=== PATIENT | female | born 1935 | race Caucasian/White ===

== ENCOUNTER 2017-05-09 16:25 | Emergency (ER) | payer MEDICARE, BC ==
[~2017-05-09 16:25] MED LIST: ACETAMINOPHEN PO; ALLOPURINOL300 MG PO; AMBIEN PO; AMBIEN10 MG; AMBIEN10 MG PO; ASPIRIN PO; ASPIRIN81 M1 PO; ASPIRIN81 M2 PO; ATENOLOL PO; ATENOLOL50 MG PO; CELEBREX PO; CELEBREX50 MG; CELEBREX50 MG PO; CELECOXIB200 MG PO; CHONDROITIN SU250 MG PO; CIPRO250 MG PO; COUMADIN5 MG PO; DILTIAZEM 24HR240 M1 PO; GLUCOSAMINE & C1 CAP PO; GLUCOSAMINE HC500 MG PO; GLUCOSAMINE PO; HCTZ PO; HYDROCHLOROTHIA25 MG PO; KCL PO; KEFLEX500 MG PO; LEVOTHROID175 MCG PO; LEVOTHYROXINE150 MCG PO; LEVOXYL0.137 MG; LISINOPRIL5 MG; LISINOPRIL5 MG PO; LOPRESSOR PO; LOVENOX SUBQ; LOVENOX80 MG/0.8 INJ; LOW DOSE ASPIRI81 M1; METOPROLOL TART75 MG PO; NEXIUM PO; PANTOPRAZOLE SO40 MG PO; PHENERGAN12.5 MG DOB; POTASSIUM CHLO10 MEQ PO; PRAVACHOL PO; PRAVACHOL20 MG PO; PRAVASTATIN SOD20 MG; PRAVASTATIN SOD20 MG PO; PRILOSEC20 MG PO; PROTONIX20 MG; SYNTHROID PO; SYNTHROID0.15 MG PO; TOPROL XL; TOPROL XL50 MG PO; UNISOM25 MG PO; VIBRAMYCIN100 M1; VITAMIN D3400 UNIT PO; VITAMIN D400 UNI1 PO; ZOFRAN PO; ZYLOPRIM PO
== END 2017-05-09 17:10 | disposition home or self-care (01) ==
LOC: SED 16:25
DX: S50.11XA Contusion of right forearm, initial encounter (principal); Z23 Encounter for immunization; Z88.0 Allergy status to penicillin; Z79.899 Other long term (current) drug therapy; X58.XXXA Exposure to other specified factors, initial encounter; Y92.009 Unspecified place in unspecified non-institutional (private) residence as the place of occurrence of the external cause
CPT/HCPCS: 90471; 90715; 99283

== ENCOUNTER 2017-07-16 10:21 | Emergency (ER) | payer MEDICARE ==
[~2017-07-16] VITALS: Ht 162.6 cm; Wt 71.4 kg
--- NOTE | ~2017-07-16 | CR206 ---
[facility] A Service of [facility] RADIOLOGY TEXT RESULTS PATIENT: MAGDA JUAN LOCATION: [facility] : 35 UNIT #: [id number] AGE: [address]: Jose Alfredo Fernandez MD SEX: F ORDER DR: [id number] [facility] [address] [place], [place] [address] [id number] E MR#: [id number] Acc #: [id number] NAME: MAGDA JUAN : 1935 SEX: F STUDY DATE/TIME: 07/16/2017 10:47 UNIT: [facility] ROOM: STUDY DESCRIPTION: CR Pelvis 1 or 2 Views Attending Physician: Jose Alfredo Fernandez M.D. Ordering Physician: Jose Alfredo Fernandez M.D. Primary Care Physician: Darwin Banda M.D. MEDICAL IMAGING REPORT This report is preliminary unless electronic signature is present EXAM Pelvis one-view 07/16/2017 1047 hours HISTORY Patient was found down next to her car today. Patient is confused and states her legs won't work. Possible fall with hip pain. COMPARISON CT abdomen and pelvis, 09/16/2013. FINDINGS Single AP view of the pelvis demonstrates overall normal bone density. The left hip is rotated. No definite fracture is seen although a left femoral neck fracture could be obscured. Pubic rami are intact. No sacral fracture seen. IMPRESSION Single view of the pelvis demonstrates the left hip to be rotated. No definite fracture is seen although the positioning could obscure a left femoral neck fracture. If the patient has pain at the left hip, I would suggest follow up dedicated left hip films to exclude a left hip fracture. Dictated by... Annalee Peters M.D. THIS IS AN ELECTRONICALLY VERIFIED REPORT Annalee Peters M.D. at 07/17/2017 9:10 AM Srinivasa TD: 07/16/2017 17:11 JOB #: [id number] [facility] A Service of [facility] RADIOLOGY TEXT RESULTS PATIENT: MAGDA JUAN LOCATION: [facility] #: [id number] : 35 UNIT #: [id number] AGE: [address]: Jose Alfredo Fernandez MD SEX: F ORDER DR: MEDICAL IMAGING REPORT Page 1 of 1 COPY
--- NOTE | ~2017-07-16 | EKG ---
PATIENT: MAGDA JUAN UNIT #: [id number] Ventricular Rate: 64 BPM Atrial Rate: 64 BPM P-R Interval: 156 ms QRS Duration: 68 ms Q-T Interval: 418 ms QTC Calculation(Bezet): 431 ms P [place]: 73 degrees Calculated R [place]: -8 degrees Calculated T [place]: 54 degrees Diagnosis Line: Normal sinus rhythm Diagnosis Line: Normal ECG Diagnosis Line: When compared with ECG of 12-DEC-2016 10:01, Diagnosis Line: No significant change was found Diagnosis Line: Confirmed by VISHNU HARPER MD ([id number]) on 07/16/2017 Diagnosis Line: 10:12:33 PM INTERPRETING MD: LEROY FUENTES
--- NOTE | ~2017-07-16 | CT71 ---
[facility] A Service of [facility] RADIOLOGY TEXT RESULTS PATIENT: MAGDA JUAN LOCATION: [facility] : 35 UNIT #: [id number] AGE: [address]: Jose Alfredo Fernandez MD SEX: F ORDER DR: [id number] [facility] [address] [place], [place] [address] [id number] E MR#: [id number] Acc #: [id number] NAME: MAGDA JUAN : 1935 SEX: F STUDY DATE/TIME: 07/16/2017 11:43 UNIT: [facility] ROOM: STUDY DESCRIPTION: CT Head Wo Contrast Attending Physician: Jose Alfredo Fernandez M.D. Ordering Physician: Jose Alfredo Fernandez M.D. Primary Care Physician: Darwin Banda M.D. MEDICAL IMAGING REPORT This report is preliminary unless electronic signature is present EXAM Noncontrast CT head. DATE 07/16/2017 HISTORY Patient was told she fell today but does not remember falling. Found by her car. Stated, "Legs not working." Difficulty moving legs. COMPARISON Noncontrast CT head 12/12/2016. FINDINGS This CT exam was performed with one or more of the following radiation dose reduction techniques: Automatic exposure control, adjustment of mA and/or kV according to patient size, and iterative reconstruction. Chronic coarse calcification of the left tentorium cerebelli, unchanged. There is mild generalized parenchymal atrophy with compensatory prominence of ventricles and extraaxial spaces. Scattered hypodensities within the deep white matter are nonspecific but are favored to represent changes of chronic microvascular disease. Chronic-appearing lacunar infarcts are demonstrated within the left basal ganglia. No convincing CT evidence of acute or evolving infarct. No mass lesion, mass effect or midline shift is seen. Calvarium is within normal limits. Mild right sphenoid sinus mucosal thickening. Mastoid air cells are clear. IMPRESSION 1. Mild generalized atrophy and scattered areas of chronic microvascular disease change with chronic-appearing lacunar infarcts in the left basal ganglia. 2. No acute intracranial findings. [facility] A Service of [facility] RADIOLOGY TEXT RESULTS PATIENT: MAGDA JUAN LOCATION: [facility] #: [id number] : 35 UNIT #: [id number] AGE: [address]: Jose Alfredo Fernandez MD SEX: F ORDER DR: Dictated by... Joann Carmichael M.D. THIS IS AN ELECTRONICALLY VERIFIED REPORT Joann Carmichael M.D. at 07/19/2017 8:52 AM EMILIA/neel TD: 07/16/2017 20:49 JOB #: [id number] MEDICAL IMAGING REPORT Page 1 of 1 COPY
--- NOTE | ~2017-07-16 | CR71 ---
[facility] A Service of [facility] RADIOLOGY TEXT RESULTS PATIENT: MAGDA JUAN LOCATION: [facility] : 35 UNIT #: [id number] AGE: [address]: Jose Alfredo Fernandez MD SEX: F ORDER DR: [id number] [facility] [address] [place], [place] [address] [id number] E MR#: [id number] Acc #: [id number] NAME: MAGDA JUAN : 1935 SEX: F STUDY DATE/TIME: 07/16/2017 10:46 UNIT: [facility] ROOM: STUDY DESCRIPTION: CR Chest Single View Attending Physician: Jose Alfredo Fernandez M.D. Ordering Physician: Jose Alfredo Fernandez M.D. Primary Care Physician: Darwin Banda M.D. MEDICAL IMAGING REPORT This report is preliminary unless electronic signature is present EXAM Chest one-view 07/16/2017 1046 hours HISTORY 82-year-old woman who was found down by her car today. Patient is confused and has her legs won't work. Possible fall with hip pain. COMPARISON 12/12/2016 FINDINGS Portable upright chest demonstrates median sternotomy change with normal heart size and stable tortuous atherosclerotic aorta. The lungs are clear with no definite effusion or fracture. Old healed left posterior rib fractures again noted. IMPRESSION Median sternotomy change with no acute cardiopulmonary findings. There are old healed left posterior mid rib fractures unchanged from 12/12/2016. No acute fracture seen. Dictated by... Annalee Peters M.D. THIS IS AN ELECTRONICALLY VERIFIED REPORT Annalee Peters M.D. at 07/17/2017 9:10 AM ELIANA/valarie TD: 07/16/2017 17:07 JOB #: [id number] [facility] A Service of [facility] RADIOLOGY TEXT RESULTS PATIENT: MAGDA JUAN LOCATION: [facility] : 35 UNIT #: [id number] AGE: [address]: Jose Alfredo Fernandez MD SEX: F ORDER DR: MEDICAL IMAGING REPORT Page 1 of 1 COPY
[2017-07-16 11:06] LABS: PARTIAL THROMBOPLASTIN TIME 25.3 SECONDS (23.5-31.3)
[2017-07-16 11:09] LABS: POC - CKMB <1.0 ng/mL (0.0-7.9); POC - TROPONIN <0.05 ng/mL (<=0.05)
[2017-07-16 11:30] LABS: URINE SOURCE CLEAN CATCH
[2017-07-16 11:34] LABS: URINE APPEARANCE CLEAR; URINE BILIRUBIN NEG (NEG); URINE BLOOD NEG (NEG); URINE COLOR YELLOW; URINE GLUCOSE NEG (NEG); URINE KETONE NEG (NEG); URINE LEUKOCYTE ESTERASE NEG (NEG); URINE NITRATE NEG (NEG); URINE PH 5.5 (5-8); URINE PROTEIN NEG (NEG); URINE UROBILINOGEN 0.2 MG/DL (NEG)
[2017-07-16 11:43] LABS: CULTURE INDICATED? NO
[2017-07-16 12:13] LABS: HEMATOCRIT 28.4 % (35.0-45.0); HEMOGLOBIN 9.3 gm/dL (12.0-16.0); MEAN CELL VOLUME 77.3 FL (83-96); MEAN CORPUSCULAR HEMOGLOBIN 25.3 PG (28-34); MEAN CORPUSCULAR HGB CONC 32.7 g/dL (30-36); MEAN PLATELET VOLUME 8.7 FL (6.5-11.5); RED BLOOD COUNT 3.67 X10e (3.90-5.30); RED CELL DISTRIBUTION WIDTH 15.5 % (11.0-15.5); WHITE BLOOD COUNT 7.2 X10e3 (4.0-10.5)
[2017-07-16 12:24] LABS: CALCIUM SERUM 9.8 mg/dL (8.4-10.2); CREATININE SERUM 1.4 mg/dL (0.6-1.4); GLOM FILT RATE Estimated 34.9 mL/min (>60); POTASSIUM 3.7 mmol/L (3.5-5.1)
== END 2017-07-16 13:05 | disposition home or self-care (01) ==
LOC: CED 10:21
PROVIDERS: Emergency Medicine
DX: Z04.3 Encounter for examination and observation following other accident (principal); I10 Essential (primary) hypertension; I25.10 Atherosclerotic heart disease of native coronary artery without angina pectoris; W18.30XA Fall on same level, unspecified, initial encounter; Y92.481 Parking lot as the place of occurrence of the external cause
CPT/HCPCS: 70450; 71010; 72170; 80048; 81003; 82553; 84484; 85027; 85610; 85730; 93005; 99284

== ENCOUNTER 2017-07-18 11:10 | Emergency (ER) | payer MEDICARE ==
--- NOTE | ~2017-07-18 | CT52 ---
[facility] A Service of [facility] RADIOLOGY TEXT RESULTS PATIENT: MAGDA JUAN LOCATION: [facility] : 35 UNIT #: [id number] AGE: [address]: Dario Nava MD SEX: F ORDER DR: [id number] [facility] [address] [place], [place] [address] [id number] E MR#: [id number] Acc #: [id number] NAME: MAGDA JUAN : 1935 SEX: F STUDY DATE/TIME: 07/18/2017 15:18 UNIT: [facility] ROOM: STUDY DESCRIPTION: CT Cervical Spine Wo Cont Attending Physician: Dario Nava Ordering Physician: Ed Doctor [id number] [facility] Primary Care Physician: Darwin Banda M.D. MEDICAL IMAGING REPORT This report is preliminary unless electronic signature is present EXAM CT of the cervical spine without contrast dated 07/18/[address] C-spine without contrast dated 12/12/2016 HISTORY Patient tripped and fell today with facial abrasions. Headache and neck pain today. TECHNIQUE CT of the C-spine was obtained without contrast in the axial plane as per the protocol. This CT exam was performed with one or more of the following radiation dose reduction techniques: automatic exposure control, adjustment of mA and/or kV according to patient size, and iterative reconstruction. FINDINGS No acute fracture is seen. There is a 2 mm retrolisthesis of C5 with respect to C4. Endplate osteophytes and degenerative changes are at multiple levels. No jumped or perched facet joints are seen. C1-2 and C7-T1 junctions are within normal limits. C2-3: Mild disc bulge with mild right and moderate left facet hypertrophic change. Mild inferior left neural foraminal narrowing is seen. There is small central protrusion. Borderline size canal. C3-4: Mild disc bulge with moderate to severe bilateral facet hypertrophic changes. Mild to moderate right and moderate left neural foraminal narrowing are seen without canal stenosis. C4-5: Disc osteophyte complex with bilateral uncinate spurs and severe STS. [facility] A Service of [facility] & [facility] RADIOLOGY TEXT RESULTS PATIENT: MAGDA JUAN [facility] [id number] : 35 UNIT #: [id number] AGE: [address]: Dario Nava MD SEX: F ORDER DR: bilateral facet hypertrophic changes. Severe right and moderate left neural foraminal narrowing is seen with borderline size to mild canal stenosis. C5-6: Disc osteophyte complex with mild bilateral facet hypertrophic changes. Severe left and mild right neural foraminal narrowing are noted with mild to moderate canal stenosis. C6-7: Disc osteophyte complex with bilateral uncinate spurs, severe right and moderate left neural foraminal narrowing. Mild canal stenosis. C7-T1: Mild disc bulge, but otherwise unremarkable. IMPRESSION 1. No acute fracture. 2. There is a 2 mm retrolisthesis of C5 with respect to C4. 3. Degenerative disk disease and facet changes are noted at multiple levels with varying degrees of neural foraminal narrowing and canal stenosis as described above. 4. Relatively worse levels are C6-7, C5-6 and C4-5. Dictated by... Domi Vivas M.D. THIS IS AN ELECTRONICALLY VERIFIED REPORT Domi Vivas M.D. at 07/19/2017 6:25 PM CPR/to TD: 07/18/2017 20:05 JOB #: [id number] MEDICAL IMAGING REPORT Page 1 of 1 COPY
--- NOTE | ~2017-07-18 | CR58 ---
[facility] A Service of [facility] RADIOLOGY TEXT RESULTS PATIENT: MAGDA JUAN LOCATION: [facility] : 35 UNIT #: [id number] AGE: [address]: Dario Nava MD SEX: F ORDER DR: [id number] [facility] [address] [place], [place] [address] [id number] E MR#: [id number] Acc #: [id number] NAME: MAGDA JUAN : 1935 SEX: F STUDY DATE/TIME: 07/18/2017 13:12 UNIT: [facility] ROOM: STUDY DESCRIPTION: CR Cervical Spine 2 or 3 Views Attending Physician: Po Nava M.D. Ordering Physician: Gerry Ramon M.D. Primary Care Physician: Darwin Banda M.D. MEDICAL IMAGING REPORT This report is preliminary unless electronic signature is present EXAM Cervical spine series, 4 views. DATE 07/18/2017 HISTORY Neck pain after a fall today. FINDINGS There is fairly discrete anterolisthesis at C4-5. There is no definite fracture and there are degenerative changes. There is no prevertebral swelling. Spinous process alignment is difficult to address or assess on the AP image. IMPRESSION There is fairly discrete, though mild 4-5 grade 1 anterolisthesis. No definite prevertebral swelling and no definite fracture but consider cervical spine CT nonetheless. Spinous process alignment is difficult to evaluate with confidence on the frontal views, and facet injury cannot be excluded. An unenhanced cervical spine CT should be sufficient for further evaluation. Dictated by... Gurinder Figueroa M.D. THIS IS AN ELECTRONICALLY VERIFIED REPORT Gurinder Figueroa M.D. at 07/19/2017 5:00 PM TEV/tmw TD: 07/18/2017 14:37 [facility] A Service [facility] RADIOLOGY TEXT RESULTS PATIENT: MAGDA JUAN LOCATION: [facility] : 35 UNIT #: [id number] AGE: [address]: Dario Nava MD SEX: F ORDER DR: JOB #: [id number] MEDICAL IMAGING REPORT Page 1 of 1 COPY
--- NOTE | ~2017-07-18 | CT101 ---
[facility] A Service of [facility] RADIOLOGY TEXT RESULTS PATIENT: MAGDA JUAN LOCATION: [facility] : 35 UNIT #: [id number] AGE: [address]: Dario Nava MD SEX: F ORDER DR: [id number] [facility] [address] [place], [place] [address] [id number] E MR#: [id number] Acc #: [id number] NAME: MAGDA JUAN : 1935 SEX: F STUDY DATE/TIME: 07/18/2017 13:19 UNIT: [facility] ROOM: STUDY DESCRIPTION: CT Maxillofacial Area Wo Cont Attending Physician: Dario Nava Ordering Physician: Ed Evert Ramon M.D. Primary Care Physician: Darwin Banda M.D. MEDICAL IMAGING REPORT This report is preliminary unless electronic signature is present EXAM CT maxillofacial area HISTORY Tripped and fell today, facial abrasions. Tripped at [place] at 0930, face forward, landed on the floor. Abrasions to nose and above left eye. Complaints of nose pain and left frontal head pain today. TECHNIQUE CT facial bones performed. Bone and soft tissue windows reviewed. Sagittal, coronal reconstructions performed. This CT exam was performed with one or more of the following radiation dose reduction techniques: automatic exposure control, adjustment of mA and/or kV according to patient size, and iterative reconstruction. FINDINGS Visualized portions of brain show no acute abnormality. There is moderate generalized atrophy suggested. The intraorbital soft tissues are unremarkable. The visualized paranasal sinuses and mastoid air cells show areas of mucosal thickening in the left maxillary sinus. Streak artifact from dental hardware. Soft tissue swelling left supraorbital region without soft tissue defect, subcutaneous air. Soft tissue swelling in the nasal soft tissues again without subcutaneous air. There is soft tissue irregularity along the right nasal soft tissues near the right medial canthus. This could be normal soft tissue configuration for this patient. Correlate with any trauma to this region. There is no subcutaneous air or radiodense foreign body. There are 2 right parotid gland nodules. The more anterior parotid gland nodule measuring about 1.4 cm in diameter, unchanged from prior CT neck November 2016 and the more posterior measuring about 1.6 cm, previously 1.5 cm. Given the stability or very slow rate of change, benign etiology favored. I do not see distinct fatty travis to clearly indicate intra parotid lymph nodes. These could be further evaluated with ultrasound on an elective basis. If it would assist in STS. [facility] A Service of [facility] RADIOLOGY TEXT RESULTS PATIENT: MAGDA JUAN [id number] 35 UNIT #: [id number] AGE: [address]: Dario Nava MD SEX: F ORDER DR: management, they may be amenable to fine needle aspiration sampling. Soft tissue swelling in the nasal region. I believe there is nondisplaced acute fracture of the anterior left nasal bone. No distraction, displacement or significant angulation. Visualized bones of calvarium are intact. The orbital bony structures are unremarkable. Nasal septum shows mild deviation to the left. Ostiomeatal complexes are patent. Zygomas, zygomatic arches, pterygoid plates maxillary sinus wallace are intact. The mandible is intact. Degenerative changes in the visualized cervical spine. No fracture is seen. Streak artifact from scattered dental hardware. IMPRESSION 1. Small nondisplaced fracture anterior aspect of the left nasal bone. No significant distraction or angulation. 2. No other facial bone fractures are seen. 3. Soft tissue swelling in the superficial nasal soft tissues. Question soft tissue/cutaneous irregularity at junction of the right nasal soft tissues and medial right periorbital soft tissues. This could be sequelae of remote trauma or remote intervention. Weight should be to given clinical assessment. There is no subcutaneous radiodense foreign body. 4. Mild soft tissue swelling left supraorbital region without soft tissue defect. 5. Note made of 2 right parotid nodules. They measure approximately 1.4 to 1.6 cm in diameter and show minimal change compared to November 2016. The stability to minimal increase in size over this time frame favors benign etiology. Please correlate clinically. These do not have central areas of fat density to clearly indicate parotid lymph nodes. They could be further evaluated with ultrasound. If it would assist in management, they may be in amendable to fine-needle aspiration sampling. 6. Areas of mucosal thickening left maxillary sinus. There is no evidence of acute sinusitis. 7. Vascular calcifications. Dictated by... Garret Pineda M.D. THIS IS AN ELECTRONICALLY VERIFIED REPORT Garret Pineda M.D. at 07/19/2017 6:35 PM JSK/raine TD: 07/18/2017 15:44 JOB #: [id number] MEDICAL IMAGING REPORT [facility] A Service of [facility] RADIOLOGY TEXT RESULTS PATIENT: MAGDA JUAN [id number] 35 UNIT #: [id number] AGE: [address]: Dario Nava MD SEX: F ORDER DR: Page 1 of 1 COPY
--- NOTE | ~2017-07-18 | CT71 ---
[facility] A Service of [facility] RADIOLOGY TEXT RESULTS PATIENT: MAGDA JUAN LOCATION: [facility] : 35 UNIT #: [id number] AGE: [address]: Dario Nava MD SEX: F ORDER DR: [id number] [facility] [address] [place], [place] [address] [id number] E MR#: [id number] Acc #: [id number] NAME: MAGDA JUAN : 1935 SEX: F STUDY DATE/TIME: 07/18/2017 13:30 UNIT: [facility] ROOM: STUDY DESCRIPTION: CT Head Wo Contrast Attending Physician: Po Nava M.D. Ordering Physician: Gerry Ramon M.D. Primary Care Physician: Darwin Banda M.D. MEDICAL IMAGING REPORT This report is preliminary unless electronic signature is present EXAM CT head without contrast dated 07/18/2017. COMPAR[address] head without contrast dated 07/16/2017. HISTORY Tripped and fell today with facial abrasions. Headaches today. TECHNIQUE CT of the head was obtained without contrast in the axial plane as per the protocol. This CT exam was performed with one or more of the following radiation dose reduction techniques: automatic exposure control, adjustment of mA and/or kV according to patient size, and iterative reconstruction. FINDINGS Patchy hypodensities are noted in the white matter, particularly in the periventricular region. No acute intracranial hemorrhage, space occupying mass, mass effect, midline shift, or hydrocephalus. There is patchy dense calcification noted in the left paramidline aspect of the posterior aspect of the brain, in the region of the tentorium cerebelli. It is probably incidental ossification, benign. Stable. Atherosclerotic arterial vascular calcifications are seen. Paranasal sinuses and mastoid air cells are well aerated. No foreign bodies are noted in the face. Patient is known to have facial abrasions which are difficult to correlate on the current study. Minimal left paramidline forehead soft tissue swelling cannot be excluded. No associated foreign body or fracture. Correlate clinically. [facility] A Service of [facility] RADIOLOGY TEXT RESULTS PATIENT: AMGDA JUAN LOCATION: [facility] : 35 UNIT #: [id number] AGE: [address]: Dario Nava MD SEX: F ORDER DR: IMPRESSION 1. Patchy hypodensities are noted in the brain, predominantly involving the periventricular white matter, likely related to chronic microvascular ischemic change or migraine, based on age and statistics. They were also noted on the prior study from 2 days ago. 2. No interval new acute hemorrhage, hydrocephalus, midline shift, or fracture. 3. Patient is known to have facial abrasions which are difficult to correlate on the current study. Minimal left paramidline forehead soft tissue swelling cannot be excluded. No associated foreign body or fracture. Correlate clinically. Dictated by... Domi Vivas M.D. THIS IS AN ELECTRONICALLY VERIFIED REPORT Domi Vivas M.D. at 07/18/2017 9:32 PM CPR/tmw TD: 07/18/2017 15:51 JOB #: [id number] MEDICAL IMAGING REPORT Page 1 of 1 COPY
== END 2017-07-18 17:18 | disposition home or self-care (01) ==
LOC: CED 11:10
DX: S02.2XXA Fracture of nasal bones, initial encounter for closed fracture (principal); I10 Essential (primary) hypertension; W01.198A Fall on same level from slipping, tripping and stumbling with subsequent striking against other object, initial encounter; Y92.481 Parking lot as the place of occurrence of the external cause; Z88.0 Allergy status to penicillin
CPT/HCPCS: 70450; 70486; 72040; 72125; 99284

== ENCOUNTER 2017-07-23 02:31 | Emergency (ER) | payer MEDICARE ==
[~2017-07-23] VITALS: Ht 162.6 cm; Wt 64.9 kg
--- NOTE | ~2017-07-23 | EKG ---
PATIENT: MAGDA JUAN UNIT #: [id number] Ventricular Rate: 109 BPM Atrial Rate: 109 BPM P-R Interval: 162 ms QRS Duration: 76 ms Q-T Interval: 366 ms QTC Calculation(Bezet): 492 ms P [place]: 46 degrees Calculated R [place]: 5 degrees Calculated T [place]: 32 degrees Diagnosis Line: Sinus tachycardia Diagnosis Line: Nonspecific ST and T wave abnormality Diagnosis Line: Abnormal ECG Diagnosis Line: No previous ECGs available Diagnosis Line: Confirmed by VISHNU HARPER MD ([id number]) on 07/23/2017 Diagnosis Line: 7:55:09 PM INTERPRETING MD: LEROY FUENTES
--- NOTE | ~2017-07-23 | CT4 ---
[facility] A Service of [facility] RADIOLOGY TEXT RESULTS PATIENT: MAGDA JUAN LOCATION: [facility] : 35 UNIT #: [id number] AGE: [address]: Jose Alfredo Fernandez MD SEX: F ORDER DR: [id number] [facility] [address] [place], [place] [address] [id number] E MR#: [id number] Acc #: [id number] NAME: MAGDA JUAN : 1935 SEX: F STUDY DATE/TIME: 07/23/2017 4:50 UNIT: [facility] ROOM: STUDY DESCRIPTION: CT Abd and Pelv Wo Cont Attending Physician: Jose Alfredo Fernandez M.D. Ordering Physician: Jose Alfredo Fernandez M.D. Primary Care Physician: Darwin Banda M.D. MEDICAL IMAGING REPORT This report is preliminary unless electronic signature is present EXAM CT abdomen and pelvis without contrast. HISTORY Unable to move legs. Abdominal aortic aneurysm. Symptom onset today. TECHNIQUE This CT exam was performed with one or more of the following radiation dose reduction techniques: automatic exposure control, adjustment of mA and/or kV according to patient size, and iterative reconstruction. FINDINGS CT abdomen and pelvis was performed without contrast CT abdomen: A chronic dissection of the distal descending thoracic aorta and abdominal aorta extending to the proximal infrarenal aorta, similar in visualized extent as compared to CT 09/16/2013. Aneurysmal dilatation of the distal descending thoracic aorta measuring up to 4.5 cm in diameter, previously 4 cm. 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 Normal-caliber mid and distal abdominal aorta. 9 mm gallstone. No gallbladder distension. No biliary dilatation. The liver, spleen, pancreas, and adrenal glands are normal. Advanced multifocal scarring and generalized atrophy in both kidneys. No bowel dilatation. No ascites. CT pelvis: No pelvic mass or fluid collection. Hysterectomy. Urinary bladder is normal. No bowel dilatation. 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 IMPRESSION 1. No acute findings in the abdomen or pelvis. 2. 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 [facility] A Service of [facility] & [facility] / [facility] RADIOLOGY TEXT RESULTS PATIENT: MAGDA JUAN LOCATION: [facility] : 35 UNIT #: [id number] AGE: [address]: Jose Alfredo Fernandez MD SEX: F ORDER DR: 3. Slightly increased aneurysmal dilatation of the distal descending thoracic aorta as compared to the prior CT, 09/16/2013, now measuring 4.5 cm in maximal diameter, previously 4 cm. Stable mild aneurysmal dilatation of the upper abdominal aorta. 4. 9 mm gallstone. 5. No bowel obstruction or urinary obstruction. 6. Bilateral spondylolysis at L5 with 12 mm anterior subluxation of L5 on S1. Dictated by... Wan Emanuel M.D. THIS IS AN ELECTRONICALLY VERIFIED REPORT Wan Emanuel M.D. at 07/23/2017 10:31 PM DFL/david TD: 07/23/2017 12:29 JOB #: [id number] MEDICAL IMAGING REPORT Page 1 of 1 COPY
--- NOTE | ~2017-07-23 | CT71 ---
[facility] A Service of [facility] RADIOLOGY TEXT RESULTS PATIENT: MAGDA JUAN LOCATION: [facility] : 35 UNIT #: [id number] AGE: [address]: Jose Alfredo Fernandez MD SEX: F ORDER DR: [id number] [facility] [address] [place], [place] [address] [id number] E MR#: [id number] Acc #: [id number] NAME: MAGDA JUAN : 1935 SEX: F STUDY DATE/TIME: 07/23/2017 4:43 UNIT: [facility] ROOM: STUDY DESCRIPTION: CT Head Wo Contrast Attending Physician: Jose Alfredo Fernandez M.D. Ordering Physician: Jose Alfredo Fernandez M.D. Primary Care Physician: Darwin Banda M.D. MEDICAL IMAGING REPORT This report is preliminary unless electronic signature is present EXAM CT brain without contrast HISTORY Weakness and dizzy today. FINDINGS This CT examination was performed with one or more of the following radiation dose reduction techniques: automatic exposure control, adjustment of mA and/or kV according to patient size, and iterative reconstruction. CT brain without contrast demonstrates bcfn-oz-lbsilroz chronic ischemic changes in the periventricular white matter bilaterally. Generalized pjxx-ya-urezoxme cerebral cortical atrophy and compensatory generalized ventricular dilatation. Calcification along the left tentorium. These are stable findings compared to 07/18/2017. No intracranial hemorrhage, mass or edema. No midline shift. Mild mucosal thickening in the partly visualized left maxillary sinus. IMPRESSION No acute findings. No change compared to 07/18/2017. Dictated by... Wan Emanuel M.D. THIS IS AN ELECTRONICALLY VERIFIED REPORT Wan Emanuel M.D. at 07/23/2017 10:31 PM TAMMIE/aysha TD: 07/23/2017 12:32 [facility] A Service of [facility] RADIOLOGY TEXT RESULTS PATIENT: MAGDA JUAN LOCATION: [facility] : 35 UNIT #: [id number] AGE: [address]: Jose Alfredo Fernandez MD SEX: F ORDER DR: JOB #: [id number] MEDICAL IMAGING REPORT Page 1 of 1 COPY
[2017-07-23] MEDS ORDERED: [UNRECOGNIZED DRUG - REMARK] (02:47)
[2017-07-23] MEDS ORDERED: TOPROL XL (02:47)
[2017-07-23 03:20] LABS: HEMATOCRIT 30.6 % (35.0-45.0); HEMOGLOBIN 9.7 gm/dL (12.0-16.0); MEAN CELL VOLUME 77.8 FL (83-96); MEAN CORPUSCULAR HEMOGLOBIN 24.6 PG (28-34); MEAN CORPUSCULAR HGB CONC 31.7 g/dL (30-36); MEAN PLATELET VOLUME 8.1 FL (6.5-11.5); RED BLOOD COUNT 3.93 X10e (3.90-5.30); RED CELL DISTRIBUTION WIDTH 15.9 % (11.0-15.5); WHITE BLOOD COUNT 8.7 X10e3 (4.0-10.5)
[2017-07-23 03:22] LABS: POC - CKMB <1.0 ng/mL (0.0-7.9); POC - TROPONIN <0.05 ng/mL (<=0.05)
[2017-07-23 03:45] LABS: URINE SOURCE CLEAN CATCH
[2017-07-23 03:46] LABS: ALBUMIN SERUM 3.6 g/dL (3.5-5.0); BILIRUBIN,TOTAL 0.7 mg/dL (0.2-2.0); BUN/CREATININE RATIO 13.75; CALCIUM SERUM 10.1 mg/dL (8.4-10.2); CREATININE SERUM 1.6 mg/dL (0.6-1.4); GLOM FILT RATE Estimated 29.7 mL/min (>60); POTASSIUM 3.6 mmol/L (3.5-5.1); PROTEIN TOTAL SERUM 6.5 g/dL (6.0-8.3)
[2017-07-23 03:48] LABS: URINE APPEARANCE CLEAR; URINE BILIRUBIN NEG (NEG); URINE BLOOD NEG (NEG); URINE COLOR YELLOW; URINE GLUCOSE NEG (NEG); URINE KETONE NEG (NEG); URINE LEUKOCYTE ESTERASE 1+ (NEG); URINE NITRATE NEG (NEG); URINE PH 6.5 (5-8); URINE PROTEIN NEG (NEG); URINE SPECIFIC GRAVITY 1.009 (1.003-1.035); URINE UROBILINOGEN 0.2 MG/DL (NEG)
[2017-07-23 03:51] LABS: CULTURE INDICATED? YES; URBCS1 AUWI 0-2 /[HPF] (0-2); URINE BACTERIA AUWI NEG (NEGATIVE); URINE SQUAMOUS EPITHELIAL CELL OCC /[HPF]
== END 2017-07-23 06:05 | disposition home or self-care (01) ==
LOC: CED 02:31
PROVIDERS: Emergency Medicine
DX: R20.2 Paresthesia of skin (principal); R53.1 Weakness; I10 Essential (primary) hypertension; Z90.710 Acquired absence of both cervix and uterus; Z88.0 Allergy status to penicillin
CPT/HCPCS: 36415; 70450; 74176; 80053; 81003; 82553; 83605; 84484; 85027; 87086; 93005; 96361; 96374; 96375; 99285; J2270; J2405

== ENCOUNTER 2017-07-27 01:22 | Inpatient (IN) | payer MEDICARE ==
[~2017-07-27] VITALS: Ht 162.6 cm; Wt 61.2 kg
--- NOTE | ~2017-07-27 | HP ---
Unit #: [id number] #: [id number] Patient: MAGDA JUAN [id number] [address] [place], [place] [address] [id number] I MR#: [id number] NAME: MAGDA JUAN ROOM: 19209 Age: 82 Sex: F Admission Date: 07/27/2017 : 1935 Attending Physician: Refugio Cordero M.D. Primary Care Physician: Darwin Banda M.D. HISTORY AND PHYSICAL CHIEF COMPLAINT Fall with left hip fracture. HISTORY This pleasant 82-year-old female, status post biosynthetic aortic valve replacement and two vessel CABG for nonobstructing coronary artery disease, anticoagulated with history of hypertension, is admitted following a fall. Patient states that she has fallen four times in the past four months secondary to balance issues. Fell last evening and presented to this emergency department early this morning as she was concerned that she hit her head while on Eliquis. Head CT and CT of the C-spine were negative for acute disease. In the emergency department while awaiting to be discharged, she stood up[facility] and now has a left intertrochanteric hip fracture. Is experiencing left hip pain. She was actually seen in this emergency department 07/23/2017 for weakness and labs were performed at that time along with a urinalysis. Patient states that she is quite active, in fact was bowling until recently. Denies chest pain or cardiac issues. Call was made to Dr. Pisano who believes he can get her on the schedule this afternoon for left hip surgery. Patient states that she last took her Eliquis about 24 hours ago. PAST MEDICAL HISTORY 1. Essential hypertension. 2. Hypothyroidism. 3. Aortic dissection. This was an ascending thoracic aortic dissection in 2010. Patient underwent repair along with placement of a bioprosthetic aortic valve. She was noted on a cardiac catheterization to have moderate nonobstructive coronary artery disease. Therefore, she underwent a two vessel CABG at the time that her aorta was repaired and the biosynthetic valve was placed. A ANALY 2011 revealed mild TR and moderate MR. There was echodensity in the inferior atrial septum. Patient is currently on Eliquis. Ejection fraction was 60%. He may have a history of paroxysmal atrial fibrillation as well. 4. History of acute kidney injury 11/2016 requiring admission. 5. Hysterectomy. 6. Cataract extraction. ALLERGIES Allergies listed as penicillin. However, patient states that she is not truly allergic to penicillin, it just does not work for her. She had osteomyelitis when she was a child and apparently had some resistance to Unit #: [id number] #: [id number] Patient: MAGDA JUAN the penicillin. HOME MEDICATIONS 1. Pravachol 20 mg daily. 2. Synthroid. I believe this is 0.15 mg daily. 3. Aspirin 81 mg daily. 4. Protonix daily. 5. Metoprolol 75 mg b.i.d. 6. Unisom p.r.n. FAMILY HISTORY Noncontributory given patient's age. SOCIAL HISTORY The patient lives alone. She is quite active. She stopped smoking in 1998. Does not drink alcohol. REVIEW OF SYSTEMS Notable for multiple falls, patient hit her head, has left hip pain currently. Hypertension, hypothyroidism, aortic dissection, CAD, status post above mentioned surgeries. All other systems were reviewed and otherwise negative. PHYSICAL GENERAL: Very pleasant, young appearing 82-year-old female, currently in no acute distress. VITAL SIGNS: Temperature 98.3, pulse 88, respirations 17. Initial blood pressure 170/73, O2 saturation is 96% on room air. HEENT EXAMINATION: Eyes PERRLA. Extraocular muscles are intact. Pharynx is benign. Patient has abrasions over her face from recent falls. NECK: Supple. There is a right shotty lymph node noted over the angle of the right jaw. Patient states this has been present for the past week. CHEST: Clear on patient's supine exam. CARDIAC: S1 and S2 occasionally irregular with a systolic murmur best heard at the right upper sternal border and at the apex. ABDOMEN: Bowel sounds are present. No hepatosplenomegaly, tenderness or masses. EXTREMITIES: Pedal pulses are present. Left leg is slightly foreshortened and externally rotated. NEUROLOGIC EXAM: The patient is awake, alert, oriented. Her cranial nerves are intact. She is able to move all extremities. DIAGNOSTIC STUDIES LABORATORY: Hematocrit 28.4, down from 30.6 four days ago. MCV 77.8, hemoglobin is 9. Normal white count. Coags are normal. SMA-7 is pending. A few days ago creatinine was 1.6. Urinalysis 07/23/2017 - 1+ leukocyte esterase with 5-10 white cells, no bacteria, negative for significant growth on culture. CARDIOVASCULAR: EKG - sinus rhythm, rate 92 with occasional APCs noted. IMAGING: X-ray of the left hip shows a left intertrochanteric hip fracture. CT of the C-spine and brain - no acute disease. Unit #: [id number] #: [id number] Patient: SPROWJOSE DE JESUS,MAGDA Chest x-ray is essentially negative. ASSESSMENT 1. Fall while in the emergency department awaiting to be discharged. Patient stood up, walked to the [employer] basket and fell. She now has a left intertrochanteric hip fracture. Her last dose of Eliquis was 24 hours ago. Falls x4 over the past month secondary to imbalance. 2. Status post bioprosthetic aortic valve following thoracic aortic dissection 2010. Patient is status post two vessel CABG for nonobstructive coronary artery disease. She is quite active. Last ANALY 2010 revealed moderate MR, mild TR, normal ejection fraction and an intraseptal hematoma, patient is on Eliquis. 3. Essential hypertension. 4. Possible paroxysmal atrial fibrillation per history. Patient currently is in a sinus rhythm. 5. Hypothyroidism. 6. Chronic microcytic anemia. PLANS 1. Continue beta blockers even if NPO. 2. Continue to hold Eliquis. 3. IV fluids and supportive treatment. 4. Type and screen. 5. Chemistries are pending, patient's urinalysis 07/23/2017 was essentially negative. 6. Patient is cleared for surgery pending repeat chemistries. However, I will obtain type and screen in case she requires transfusion with her surgery. Dictated by Samanta Ruby M.D. AML/df TD: 07/27/2017 06:41 JOB #: [id number] HISTORY AND PHYSICAL Page 1 of 1 X Samanta Ruby MD HISTORY AND PHYSICAL
--- NOTE | ~2017-07-27 | CT71 ---
[facility] A Service of [facility] RADIOLOGY TEXT RESULTS PATIENT: MAGDA JUAN LOCATION: [facility] 465-01 : 35 UNIT #: [id number] AGE: [address]: Yina Espinosa MD SEX: F ORDER DR: [id number] [facility] [address] [place], [place] [address] [id number] I MR#: [id number] Acc #: [id number] NAME: MAGDA JUAN : 1935 SEX: F STUDY DATE/TIME: 07/27/2017 2:30 UNIT: [facility] ROOM: [id number] STUDY DESCRIPTION: CT Head Wo Contrast Attending Physician: Refugio Cordero M.D. Ordering Physician: Refugio Cordero M.D. Primary Care Physician: Darwin Banda M.D. MEDICAL IMAGING REPORT This report is preliminary unless electronic signature is present EXAM CT brain without contrast HISTORY Headache after fell and hit head today. FINDINGS This CT examination was performed with one or more of the following radiation dose reduction techniques: automatic exposure control, adjustment of mA and/or kV according to patient size, and iterative reconstruction. CT brain without contrast demonstrates no intracranial hemorrhage, mass or edema. No midline shift or extraaxial fluid collection. Mild generalized cerebral cortical atrophy and moderate chronic ischemic changes in the deep white matter bilaterally. Focal chronic calcification along the left tentorium. Moderate mucosal thickening in ethmoid air cells bilaterally and mild mucosal thickening in the right sphenoid sinus and left maxillary sinus. IMPRESSION 1. No acute intracranial findings. 2. Generalized cerebral cortical atrophy and chronic ischemic changes. Dictated by... Wan Emanuel M.D. THIS IS AN ELECTRONICALLY VERIFIED REPORT Wan Emanuel M.D. at 07/27/2017 3:57 PM TAMMIE/aysha TD: 07/27/2017 07:26 [facility] A Service of [facility] RADIOLOGY TEXT RESULTS PATIENT: MAGDA JUAN LOCATION: [facility] 465-01 : 35 UNIT #: [id number] AGE: [address]: Yina Espinosa MD SEX: F ORDER DR: JOB #: [id number] MEDICAL IMAGING REPORT Page 1 of 1 COPY
--- NOTE | ~2017-07-27 | CR150 ---
[facility] A Service of [facility] RADIOLOGY TEXT RESULTS PATIENT: MAGDA JUAN LOCATION: [facility] : 35 UNIT #: [id number] AGE: [address]: Yina Espinosa MD SEX: F ORDER DR: [id number] [place] [id number] [facility] [place], [place] [address] [id number] I MR#: [id number] Acc #: [id number] NAME: MAGDA JUAN : 1935 SEX: F STUDY DATE/TIME: 07/28/2017 14:41 UNIT: [facility] ROOM: [facility] STUDY DESCRIPTION: CR Hip Min 2 Views Lt Attending Physician: Yina Espinosa M.D. Ordering Physician: Jaison Quintero M.D. Primary Care Physician: Darwin Banda M.D. MEDICAL IMAGING REPORT This report is preliminary unless electronic signature is present EXAM Left hip, 2 views COMPARISON Left hip radiographs dated July 27, 2017. INDICATION 82-year-old female. Fluoroscopic evaluation for open reduction internal fixation of left femoral neck fracture. Gamma nail placement. TECHNIQUE 4 images were obtained. Total fluoro time was 42 seconds. FINDINGS Intraoperative images demonstrate an intertrochanteric lag screw traversing a intramedullary nail in the left femur. A fracture line is persistently visible at the femoral neck and also likely involves the lesser trochanter which appears displaced. There is no evidence of hardware complication. Fracture fragments appear in near anatomic alignment. There is an interlocking cortical screw at the distal tip of the femoral nail. IMPRESSION Open reduction internal fixation of proximal left femur fracture as described. There is mild displacement of a fracture fragment through the lesser trochanter. Bone fragments are otherwise in gross anatomic alignment. Dictated by... Nahum Navarrete M.D. THIS IS AN ELECTRONICALLY VERIFIED REPORT [facility] A Service of [facility] & [facility] RADIOLOGY TEXT RESULTS PATIENT: MAGDA JUAN LOCATION: [facility] : 35 UNIT #: [id number] AGE: [address]: Yina Espinosa MD SEX: F ORDER DR: Nahum Navarrete M.D. at 08/04/2017 9:14 PM JASEN/aysha TD: 07/29/2017 07:10 JOB #: [id number] MEDICAL IMAGING REPORT Page 1 of 1 COPY
--- NOTE | ~2017-07-27 | CR150 ---
[facility] A Service of [facility] RADIOLOGY TEXT RESULTS PATIENT: MAGDA JUAN LOCATION: [facility] 465-01 : 35 UNIT #: [id number] AGE: [address]: Yina Espinosa MD SEX: F ORDER DR: [id number] [facility] [address] [place], [place] [address] [id number] I MR#: [id number] Acc #: [id number] NAME: MAGDA JUAN : 1935 SEX: F STUDY DATE/TIME: 07/27/2017 4:37 UNIT: [facility] ROOM: [facility] STUDY DESCRIPTION: CR Hip Min 2 Views Lt Attending Physician: Refugio Cordero M.D. Ordering Physician: Refugio Cordero M.D. Primary Care Physician: Darwin Banda M.D. MEDICAL IMAGING REPORT This report is preliminary unless electronic signature is present EXAM Left hip 2 views HISTORY Hip pain after fall today. FINDINGS Two views left hip demonstrate comminuted intertrochanteric fracture of the left hip with approximately 30 degrees varus angulation. Generalized demineralization. No dislocation. Dictated by... Wan Emanuel M.D. THIS IS AN ELECTRONICALLY VERIFIED REPORT Wan Emanuel M.D. at 07/27/2017 4:02 PM TAMMIE/aysha TD: 07/27/2017 08:03 JOB #: [id number] MEDICAL IMAGING REPORT Page 1 of 1 COPY
--- NOTE | ~2017-07-27 | CT52 ---
[facility] A Service of [facility] & [facility] RADIOLOGY TEXT RESULTS PATIENT: MAGDA JUAN LOCATION: [place] [address] : 35 UNIT #: [id number] AGE: [address]: Yina Espinosa MD SEX: F ORDER DR: [id number] [facility] [address] [place], [place] [address] [id number] I MR#: [id number] Acc #: [id number] NAME: MAGDA JUAN : 1935 SEX: F STUDY DATE/TIME: 07/27/2017 2:32 UNIT: [facility] ROOM: [id number] STUDY DESCRIPTION: CT Cervical Spine Wo Cont Attending Physician: Refugio Cordero M.D. Ordering Physician: Refugio Cordero M.D. Primary Care Physician: Darwin Banda M.D. MEDICAL IMAGING REPORT This report is preliminary unless electronic signature is present EXAM CT cervical spine without contrast HISTORY Fell and hit head today. Head and neck pain. FINDINGS This CT examination was performed with one or more of the following radiation dose reduction techniques: automatic exposure control, adjustment of mA and/or kV according to patient size, and iterative reconstruction. CT cervical spine without contrast demonstrates moderate to moderately severe degenerative disc space narrowing at C5-6 and C6-7 and mild disc space narrowing at C7-T1. 4 mm anterior subluxation of C4 on C5. These are stable findings compared to CT cervical spine 07/18/2017. Moderate multilevel degenerative facet arthropathy, greater at C3-4, C4-5. Small to moderate sized broad-based posterior marginal osteophytes from C4-5 to C6-7. No fracture. No precervical soft tissue swelling. IMPRESSION 1. No acute findings. 2. Multilevel degenerative changes. 3. No change compared to 07/18/2017. 4. Stable 4 mm anterior subluxation of C4 on C5 likely on a degenerative basis with associated degenerative facet arthropathy. Dictated by... Wan Emanuel M.D. THIS IS AN ELECTRONICALLY VERIFIED REPORT [facility] A Service of [facility] RADIOLOGY TEXT RESULTS PATIENT: MAGDA JUAN LOCATION: [facility] 465-01 : 35 UNIT #: [id number] AGE: [address]: Yina Espinosa MD SEX: F ORDER DR: Wan Emanuel M.D. at 07/27/2017 3:57 PM TAMMIE/aysha TD: 07/27/2017 07:17 JOB #: [id number] MEDICAL IMAGING REPORT Page 1 of 1 COPY
--- NOTE | ~2017-07-27 | CR71 ---
[facility] A Service of [facility] & [facility] RADIOLOGY TEXT RESULTS PATIENT: MAGDA JUAN LOCATION: [facility] 465-01 : 35 UNIT #: [id number] AGE: [address]: Yina Espinosa MD SEX: F ORDER DR: [id number] [facility] [address] [place], [place] [address] [id number] I MR#: [id number] Acc #: [id number] NAME: MAGDA JUAN : 1935 SEX: F STUDY DATE/TIME: 07/27/2017 4:40 UNIT: [facility] ROOM: [facility] STUDY DESCRIPTION: CR Chest Single View Attending Physician: Yina Espinosa M.D. Ordering Physician: Refugio Cordero M.D. Primary Care Physician: Darwin Banda M.D. MEDICAL IMAGING REPORT This report is preliminary unless electronic signature is present EXAM Portable chest HISTORY Shortness of air today. Fell today. FINDINGS Cardiac size and pulmonary vascularity are within normal limits. Old healed lower left rib fractures. No airspace infiltrates or effusions. Tortuous distal descending thoracic aorta. Surgical clips in the right axilla. Sternotomy and surgical clips at the EG junction. IMPRESSION No acute findings. Dictated by... Wan Emanuel M.D. THIS IS AN ELECTRONICALLY VERIFIED REPORT Wan Emanuel M.D. at 07/27/2017 4:02 PM DFL/evelyn TD: 07/27/2017 08:10 JOB #: [id number] MEDICAL IMAGING REPORT Page 1 of 1 COPY
--- NOTE | ~2017-07-27 | US37 ---
[facility] A Service of [facility] & [facility] RADIOLOGY TEXT RESULTS PATIENT: MAGDA JUAN LOCATION: [facility] [address] : 35 UNIT #: [id number] AGE: [address]: Yina Espinosa MD SEX: F ORDER DR: [id number] [facility] [address] [place], [place] [address] [id number] I MR#: [id number] Acc #: [id number] NAME: MAGDA JUAN : 1935 SEX: F STUDY DATE/TIME: 07/27/2017 16:17 UNIT: [facility] ROOM: [facility] STUDY DESCRIPTION: US Carotid W/Doppler Bilateral Attending Physician: Yian Espinosa M.D. Ordering Physician: Yina Espinosa M.D. Primary Care Physician: Darwin Banda M.D. MEDICAL IMAGING REPORT This report is preliminary unless electronic signature is present EXAM Bilateral carotid duplex HISTORY Syncope, falls. FINDINGS There is patent flow seen throughout the right common carotid, internal carotid, and external carotid arteries. There is no significant atherosclerosis noted throughout the right common carotid artery vasculature. The right common carotid artery peak velocity is 70 cm/sec. The right internal carotid artery peak systolic over end diastolic velocities are: Proximal 43/15 cm/sec, mid 47/16 cm/sec, distal 40/16 cm/sec. The right external carotid artery peak velocity is 67 cm/sec, vertebral artery 26 cm/sec. The right ICA/CCA ratio is 0.7. There is patent flow seen throughout the left common carotid, internal carotid, and external carotid arteries. There is no significant calcification noted throughout the carotid bifurcation. The left external carotid artery has some mild, wideness, irregular appearing plaque. The left common carotid artery peak velocity is 51 cm/sec. The left internal carotid artery peak systolic over end diastolic velocities are: Proximal 45/19 cm/sec, mid 37/15 cm/sec, distal 40/15 cm/sec. The left external carotid artery peak velocity is 81 cm/sec, vertebral artery 63 cm/sec. The left ICA/CCA ratio is 0.9. At the right lateral neck, note is made of a 1.9 x 1.3 cm node, with some flow. FINDINGS 1. Normal study of the right carotid artery, with no significant atherosclerosis. [facility] A Service of [facility] & [facility] RADIOLOGY TEXT RESULTS PATIENT: MAGDA JUAN LOCATION: [place] [address] : 35 UNIT #: [id number] AGE: [address]: Yina Espinosa MD SEX: F ORDER DR: 2. Normal study of the left carotid artery, with no significant atherosclerosis noted. 3. Vertebral flow is antegrade bilaterally. 4. Right lateral neck node, measuring 1.9 x 1.3 cm. Dedicated thyroid ultrasound is recommended for further evaluation. Dictated by... Temo Salazar M.D. THIS IS AN ELECTRONICALLY VERIFIED REPORT Temo Salazar M.D. at 07/31/2017 8:53 AM DENYS/edith TD: 07/28/2017 23:34 JOB #: [id number] MEDICAL IMAGING REPORT Page 1 of 1 COPY
--- NOTE | ~2017-07-27 | EKG ---
PATIENT: MAGDA JUAN UNIT #: [id number] Ventricular Rate: 92 BPM Atrial Rate: 92 BPM P-R Interval: 158 ms QRS Duration: 76 ms Q-T Interval: 348 ms QTC Calculation(Bezet): 430 ms P [place]: 84 degrees Calculated R [place]: 89 degrees Calculated T [place]: 63 degrees Diagnosis Line: Sinus rhythm with Premature supraventricular Diagnosis Line: complexes Diagnosis Line: Poor R wave progression questionable lead position Diagnosis Line: or body habitus Diagnosis Line: Otherwise normal ECG Diagnosis Line: When compared with ECG of 23-JUL-2017 03:25, Diagnosis Line: Premature supraventricular complexes are now Diagnosis Line: Present Diagnosis Line: Questionable change in QRS axis Diagnosis Line: Nonspecific T wave abnormality no longer evident Diagnosis Line: in Inferior leads Diagnosis Line: T wave inversion no longer evident in Anterior Diagnosis Line: leads Diagnosis Line: QT has shortened Diagnosis Line: Confirmed by OZ WATERMAN MD ([id number]) on 07/27/2017 Diagnosis Line: 5:50:56 PM INTERPRETING MD: COLUMBA FUENTES
--- NOTE | ~2017-07-27 | CO ---
Unit #: [id number] #: [id number] Patient: MAGDA GALO [id number] [facility]. [place], [place] [address] [id number] MR#: [id number] NAME: MAGDA GALO ROOM: 465 Age: 82 Sex: F Admission Date: 07/27/2017 : 1935 Attending Physician: Yina Espinosa M.D. Primary Care Physician: Darwin Banda M.D. CONSULTATION REPORT CHIEF COMPLAINT Left hip pain. HISTORY OF PRESENT ILLNESS Ms. Galo is an 82-year-old female, who was at her home, walking with her walker and tripped over it and fell. She was unable to ambulate. She was brought to [facility] Emergency Room where x-rays were obtained and she was diagnosed with a left intertrochanteric femur fracture. Orthopedics was consulted for definitive management. 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 Quintero for, also history of leaky valves with mitral valve prolapse, and gastroesophageal reflux disease. PAST SURGICAL HISTORY Includes partial hysterectomy, appendectomy, AAA with valve replacement, cataract removal. HOME MEDICATIONS Include Toprol and Eliquis, unknown other medications. ALLERGIES Allergic to penicillin. SOCIAL HISTORY Denies any recent travel. Denies any alcohol or tobacco use. REVIEW OF SYSTEMS Only positive for left hip pain. Other 12 systems are negative. PHYSICAL EXAMINATION GENERAL: Demonstrates a pleasant, 82-year-old female. VITAL SIGNS: Temperature is 98.3, pulse is 88, respiratory rate 17, blood pressure 170/73, saturations 96% on room air, currently rates her pain as 2/10. HEENT: Contusion of the anterior forehead. Pupils are round and reactive to light. Extraocular movements are intact. NECK: Trachea is midline. No JVD is present. HEART: Regular rate and rhythm. CHEST: No audible expiratory wheezes. ABDOMEN: Soft, nontender, nondistended. Unit #: [id number] #: [id number] Patient: MAGDA GALO MUSCULOSKELETAL: Demonstrates left leg is shortened and externally rotated. She has positive log roll with tenderness to palpation of the left groin. She is neurovascularly intact distally to peroneal and tibial nerve distribution distally. Palpable pulses are present. Brisk capillary refill is present. DIAGNOSTIC STUDIES IMAGING STUDIES: Review of x-rays obtained through [facility] Emergency Room demonstrates displaced, shortened left intertrochanteric femur fracture. IMPRESSION Displaced left intertrochanteric femur fracture. PLAN Discussed treatment options. I recommended surgical intervention with intramedullary nailing. Initial plan was to perform the surgery this morning. However, there was no operating room time availability this a.m. Next opportunity will be tomorrow morning with Dr. Quintero to perform the above procedure. Risks and benefits of surgical intervention were discussed in detail with the patient's daughter including fracture, malunion, nonunion, painful hardware, need for hardware removal, need for additional surgery, DVT, PE and . We will have the patient's daughter signed the above consent. Since surgery will be delayed until tomorrow, we will resume her diet. The patient and patient's family were agreeable to proceed as discussed. Dictated by... Johnathan Pisano M.D. CALEB/jazmine TD: 07/28/2017 03:28 JOB #: [id number] CONSULTATION REPORT Page 1 of 1 X Johnathan Pisano MD X CONSULTATION REPORT
--- NOTE | ~2017-07-27 | CO ---
Unit #: [id number] #: [id number] Patient: MAGDA GALO [id number] [address] [place], [place] [address] [id number] I MR#: [id number] NAME: MAGDA GALO ROOM: [facility] Age: 82 Sex: F Admission Date: 07/27/2017 : 1935 Attending Physician: Yina Espinosa M.D. Primary Care Physician: Darwin Banda M.D. Consultation Date: 07/28/2017 CONSULTATION REPORT CONSULTING PHYSICIAN Dr. Quintero. REASON FOR CONSULTATION Left hip fracture. HISTORY OF PRESENT ILLNESS Ms. Galo is an 82-year-old female, who presents today with a left intertrochanteric hip fracture. The patient has a history of multiple falls. Her last fall was when she was walking to the trash can, lost her balance, fell, and landed on the left hip. The patient admits to discomfort and pain with any movement. The patient is unable to weight bear at this time. There is no numbness, but positive weakness and instability due to pain. PAST MEDICAL HISTORY Significant for hypertension, hypothyroidism, aortic dissection, kidney injury, hysterectomy, and cataract extraction. MEDICATIONS Include Pravachol, Synthroid, aspirin, Protonix, metoprolol, and Unisom. ALLERGIES Penicillin. FAMILY HISTORY Insignificant. SOCIAL HISTORY The patient lives alone. She quit smoking in the . She denies any alcohol or illicit drug use. REVIEW OF SYSTEMS Ten organ systems were reviewed. The patient denies any blurry vision, congestion, sore throat, shortness of breath, chest pain, abdominal pain, urinary incontinence, numbness, tingling, skin ulcers, lesions, anxiety, or depression. Positive for joint pain. PHYSICAL EXAMINATION GENERAL: No acute distress. Alert and oriented x3. VITAL SIGNS: Temperature 98.5, pulse 88, respirations 20, and blood pressure 159/75. HEENT: PERRLA. Nonicteric sclerae. Thorax, trachea midline. No thyromegaly. Unit #: [id number] #: [id number] Patient: MAGDA GALO CARDIAC: S1 and S2. No extra sounds or murmurs. LUNGS: Clear to auscultation. No rales or rhonchi. ABDOMEN: Nondistended and nontender. Positive bowel sounds. : Deferred. MUSCULOSKELETAL: No erythema or ecchymosis. 2+ dorsalis pedis. Bilateral pulses. NEUROLOGIC: Cranial nerves II through XII are intact. SKIN: Cool and dry. PSYCHIATRIC: Good insight and good judgment. Mood and affect are pleasant. LABORATORY DATA On admission, white count is 13.2, hemoglobin 10.4, hematocrit 32.2, and platelets 213. INR is 1.0. Sodium 138, potassium 3.8, chloride 106, bicarb 23, BUN 14, creatinine 1.1, and glucose 111. DIAGNOSTIC STUDIES X-rays of the left hip, two views, ordered and reviewed and shows a left hip intertrochanteric fracture. ASSESSMENT Left hip fracture. PLAN I discussed treatment options with the patient. I have recommended a left hip Gamma nail to be done by Dr. Quintero this afternoon. Pending medical clearance. Risks and benefits of the procedure were explained as well as the description of procedure in its entirety along with any complications. The patient has decided to proceed. We will go ahead and get this scheduled, get the usual preoperative lab work and testing complete and have the patient medically cleared for surgery. Dictated by... Khai Hand/jazmine TD: 07/29/2017 04:35 JOB #: [id number] CONSULTATION REPORT Page 1 of 1 X Carli Gabriel CONSULTATION REPORT
--- NOTE | ~2017-07-27 | OR ---
Unit #: [id number] #: [id number] Patient: MAGDA JUAN [id number] [address] [place], [place] [address] [id number] I MR#: [id number] NAME: MAGDA JUAN ROOM: [facility] Date of Procedure: 07/28/2017 Admission Date: 07/27/2017 Surgeon: Jaison Quintero M.D. : 1935 Attending Physician: Yina Espinosa M.D. Primary Care Physician: Darwin Banda M.D. OPERATIVE REPORT PREOPERATIVE DIAGNOSIS Intertrochanteric fracture of the left hip. POSTOPERATIVE DIAGNOSIS Intertrochanteric fracture of the left hip. PROCEDURE PERFORMED Open reduction and fixation with a short 130 gamma nail. ANESTHESIA General. ESTIMATED BLOOD LOSS 100 mL. DESCRIPTION OF PROCEDURE The patient was brought to the operating room, given appropriate IV antibiotics, placed on the fracture table. Left hip was prepped and draped after the C-arm showed an appropriate reduction of the fracture. After the hip was prepped and draped, a small incision was made superior to the tip of the greater trochanter. The awl was used to enter the tip of the trochanter under C-arm control, and once this was in place, the guide pin was placed down the femur. We then used the proximal reamer, positioned a short 130 gamma nail to the appropriate depth and we then placed the guide pin up the femoral neck. Once this was in appropriate position, it was measured and found we needed an 85-mm lag screw. This was opened, and after it was reamed, it was placed up the femoral neck. Proximal locking screw was positioned. C-arm showed appropriate position of the fractures and the hardware on AP and lateral view. We then placed a 37.5 distal locking screw using the external guide. The wounds were irrigated out and closed with 0 Vicryl and gee. Sterile dressing applied, and her general anesthetic reversed. Dictated by... Orlando Esteban/jazmine TD: 07/29/2017 11:56 JOB #: [id number] Unit #: [id number] #: [id number] Patient: MAGDA JUAN OPERATIVE REPORT Page 1 of 1 X Jaison Quintero MD PROCEDURE OPERATIVE NOTE
--- NOTE | ~2017-07-27 | DS ---
Unit #: [id number] #: [id number] Patient: MAGDA JUAN [id number] [address] [place], [place] [address] [id number] MR#: [id number] NAME: MAGDA JUAN ROOM: [facility] Age: 82 Sex: F Admission Date: 07/27/2017 : 1935 Discharge Date: 07/31/2017 Attending Physician: Yina Espinosa M.D. Primary Care Physician: Darwin Banda M.D. DISCHARGE SUMMARY FINAL DIAGNOSES 1. Left hip fracture, status post gamma nail. 2. Vitamin B12 deficiency. 3. Acute blood loss anemia. SECONDARY DIAGNOSES 1. Hypertension. 2. Hypothyroidism. 3. History of aortic dissection. 4. History of acute kidney injury. 5. Multiple falls. PROCEDURE She had a gamma nail procedure by Dr. Quintero on July 28, 2017. HOSPITAL COURSE An 82-year-old female who basically fell and sustained a left hip fracture. She was admitted to the emergency room. There was no history of loss of consciousness. It was said to be a mechanical fall. Patient was taken to the operating room and had a gamma nail procedure by Dr. Quintero. Seems to be doing okay at this time. Her hemoglobin today, which is the day of discharge, was 8.4. She was somewhat anemic when she came in initially at 9 with a peak of 10.4 hemoglobin. She also has hypothyroidism for which her thyroid medication was adjusted. She denies any pain at this time. She is currently being evaluated for subacute rehab and will be discharged in stable condition to subacute rehab. Postop care will be per Dr. Quintero. DISCHARGE MEDICATIONS 1. Lovenox 40 mg subcutaneous daily for two weeks. 2. Diphenhydramine 25 mg p.o. q.6 hourly p.r.n. itching. 3. Tylenol 325 mg p.o. q.4 hourly p.r.n. 4. Lopressor 75 mg p.o. twice daily. 5. Bisacodyl 10 mg p.r.n. constipation. 6. Senokot S one tablet p.o. twice daily. 7. Milk of Magnesia 30 mL p.o. q.6 hours p.r.n. constipation. 8. Lipitor 10 mg p.o. at bedtime. 9. Lortab 7.5/325 one tablet p.o. q.4 hourly p.r.n. 10. Protonix 40 mg p.o. daily. 11. Synthroid 125 mcg p.o. daily. PLAN Will check a CBC, BMP in about three to five days per primary attending at Unit #: [id number] #: [id number] Patient: [facility]DA JUAN [facility]. Time spent coordinating discharge about 28 minutes. Dictated by... Orlando Ortiz TD: 07/31/2017 09:08 JOB #: [id number] DISCHARGE SUMMARY Page 1 of 1 X Silverio Eaton MD X DISCHARGE SUMMARY
[~2017-07-27 01:22] MED LIST changes: +[UNRECOGNIZED DRUG - REMARK]
[2017-07-27 05:21] LABS: BASOPHIL# 0.1 X10e3 (0-0.3); HEMATOCRIT 28.4 % (35.0-45.0); LYMPHOCYTE# 1.6 X10e3 (1.0-3.5); LYMPHOCYTE% 15.9 % (17.0-45.0); MEAN CELL VOLUME 77.8 FL (83-96); MEAN CORPUSCULAR HEMOGLOBIN 24.7 PG (28-34); MEAN CORPUSCULAR HGB CONC 31.8 g/dL (30-36); MEAN PLATELET VOLUME 8.9 FL (6.5-11.5); MONOCYTE# 1.4 X10e3 (0-1.0); MONOCYTE% 14.2 % (3.0-12.0); NEUTROPHIL% 68.9 % (40-75); PLATELET COUNT 287 X10e3 (140-420); RED BLOOD COUNT 3.66 X10e (3.90-5.30); RED CELL DISTRIBUTION WIDTH 15.6 % (11.0-15.5); WHITE BLOOD COUNT 10.1 X10e3 (4.0-10.5)
[2017-07-27 05:22] LABS: DIFF IND NO
[2017-07-27 05:31] LABS: PROTHROMBIN TIME (PATIENT) 10.8 SECONDS (10.0-11.7)
[2017-07-27 06:22] LABS: BUN/CREATININE RATIO 14.16; CALCIUM SERUM 8.6 mg/dL (8.4-10.2); CREATININE SERUM 1.2 mg/dL (0.6-1.4); GLOM FILT RATE Estimated 42.1 mL/min (>60); POTASSIUM 3.4 mmol/L (3.5-5.1)
[2017-07-28 04:11] LABS: HEMATOCRIT 32.2 % (35.0-45.0); HEMOGLOBIN 10.4 gm/dL (12.0-16.0); MEAN CELL VOLUME 77.6 FL (83-96); MEAN CORPUSCULAR HGB CONC 32.2 g/dL (30-36); MEAN PLATELET VOLUME 8.3 FL (6.5-11.5); RED BLOOD COUNT 4.16 X10e (3.90-5.30); RED CELL DISTRIBUTION WIDTH 15.7 % (11.0-15.5); WHITE BLOOD COUNT 13.2 X10e3 (4.0-10.5)
[2017-07-28 04:43] LABS: BUN/CREATININE RATIO 12.72; CALCIUM SERUM 9.4 mg/dL (8.4-10.2); CREATININE SERUM 1.1 mg/dL (0.6-1.4); GLOM FILT RATE Estimated 46.7 mL/min (>60); POTASSIUM 3.8 mmol/L (3.5-5.1)
[2017-07-29 03:50] LABS: BASOPHIL# 0.1 X10e3 (0-0.3); BASOPHIL% 0.3 % (0-2.5); HEMATOCRIT 28.7 % (35.0-45.0); LYMPHOCYTE# 0.4 X10e3 (1.0-3.5); MEAN CELL VOLUME 77.4 FL (83-96); MEAN CORPUSCULAR HEMOGLOBIN 24.2 PG (28-34); MEAN CORPUSCULAR HGB CONC 31.3 g/dL (30-36); MEAN PLATELET VOLUME 8.3 FL (6.5-11.5); MONOCYTE# 2.1 X10e3 (0-1.0); MONOCYTE% 10.2 % (3.0-12.0); NEUTROPHIL% 87.5 % (40-75); PLATELET COUNT 176 X10e3 (140-420); RED CELL DISTRIBUTION WIDTH 15.4 % (11.0-15.5)
[2017-07-29 03:51] LABS: DIFF IND YES; WHITE BLOOD COUNT 20.6 X10e3 (4.0-10.5)
[2017-07-29 04:16] LABS: ANISOCYTOSIS SL; MICROCYTOSIS MOD; OVALOCYTES PRESENT; PLATELET ESTIMATE DECREASED (NORMAL); POIKILOCYTOSIS SL
[2017-07-29 04:17] LABS: POLYCHROMASIA SL
[2017-07-30 03:32] LABS: BASOPHIL# 0.1 X10e3 (0-0.3); BASOPHIL% 0.6 % (0-2.5); HEMATOCRIT 24.7 % (35.0-45.0); LYMPHOCYTE% 6.2 % (17.0-45.0); MEAN CELL VOLUME 77.2 FL (83-96); MEAN CORPUSCULAR HEMOGLOBIN 25.1 PG (28-34); MEAN CORPUSCULAR HGB CONC 32.5 g/dL (30-36); MEAN PLATELET VOLUME 8.9 FL (6.5-11.5); MONOCYTE# 1.8 X10e3 (0-1.0); MONOCYTE% 11.8 % (3.0-12.0); NEUTROPHIL# 12.7 X10e3 (1.5-7.1); NEUTROPHIL% 81.4 % (40-75); PLATELET COUNT 168 X10e3 (140-420); RED CELL DISTRIBUTION WIDTH 15.5 % (11.0-15.5); WHITE BLOOD COUNT 15.6 X10e3 (4.0-10.5)
[2017-07-30 03:33] LABS: DIFF IND NO
[2017-07-30 04:25] LABS: CALCIUM SERUM 9.1 mg/dL (8.4-10.2); CREATININE SERUM 1.3 mg/dL (0.6-1.4); GLOM FILT RATE Estimated 38.2 mL/min (>60); POTASSIUM 4.1 mmol/L (3.5-5.1)
[2017-07-31 03:23] LABS: BASOPHIL# 0.1 X10e3 (0-0.3); BASOPHIL% 0.8 % (0-2.5); DIFF IND NO; HEMATOCRIT 26.2 % (35.0-45.0); HEMOGLOBIN 8.4 gm/dL (12.0-16.0); LYMPHOCYTE% 8.3 % (17.0-45.0); MEAN CORPUSCULAR HEMOGLOBIN 24.5 PG (28-34); MEAN CORPUSCULAR HGB CONC 31.9 g/dL (30-36); MEAN PLATELET VOLUME 8.4 FL (6.5-11.5); MONOCYTE# 1.5 X10e3 (0-1.0); MONOCYTE% 11.9 % (3.0-12.0); NEUTROPHIL# 9.9 X10e3 (1.5-7.1); PLATELET COUNT 238 X10e3 (140-420); RED CELL DISTRIBUTION WIDTH 15.8 % (11.0-15.5); WHITE BLOOD COUNT 12.5 X10e3 (4.0-10.5)
== END 2017-07-31 16:23 | DRG 481 ==
LOC: CED 01:22 → CEDOF 05:45 → CED 05:57 → C4C 05:57 → CEDOF 08:01 → C4C 08:01
PROVIDERS: Emergency Medicine; Family Medicine; Hospitalist; Orthopaedic Surgery
PROC: 30233N1 Transfusion of Nonautologous Red Blood Cells into Peripheral Vein, Percutaneous Approach (ICD-10-PCS; 2017-07-27)
PROC: 0QS704Z Reposition Left Upper Femur with Internal Fixation Device, Open Approach (ICD-10-PCS; principal; 2017-07-28 14:00)
DX: S72.142A Displaced intertrochanteric fracture of left femur, initial encounter for closed fracture (principal); N17.9 Acute kidney failure, unspecified; Z95.4 Presence of other heart-valve replacement; I48.0 Paroxysmal atrial fibrillation; I10 Essential (primary) hypertension; E03.9 Hypothyroidism, unspecified; Z88.0 Allergy status to penicillin; Z79.82 Long term (current) use of aspirin; Z79.899 Other long term (current) drug therapy; W19.XXXA Unspecified fall, initial encounter; Y92.238 Other place in hospital as the place of occurrence of the external cause; D50.9 Iron deficiency anemia, unspecified; R29.6 Repeated falls
CPT/HCPCS: 36430; 70450; 71010; 72125; 73502; 76000; 80048; 82607; 83036; 84443; 85025; 85027; 85610; 85730; 86850; 86900; 86901; 86923; 93005; 93880; 94760; 97110; 97162; 97530; 99285; C1713; G8978-GP; G8979-GP; J0690; J1100; J1170; J1650; J2270; J2405; J3010; J3420; P9016